=== PATIENT | male | born 1985 | race Caucasian/White ===

== ENCOUNTER 2018-01-16 10:19 | Emergency (ER) | END 2018-01-16 15:10 | disposition home or self-care (01) ==

== ENCOUNTER 2019-01-09 18:16 | Emergency (ER) | payer OTHER ==
[~2019-01-09] VITALS: Ht 172.7 cm; Wt 113.4 kg
[~2019-01-09 18:16] MED LIST: ASPI-699 PO
[2019-01-09 19:06] VITALS: Ht 172.7 cm; Wt 113.4 kg
[2019-01-09] MEDS ORDERED: SOD CHLORIDE 0.9% 500 ML IV STA (21:23)
[2019-01-09] MEDS ORDERED: KETOROLAC 60 MG INJ IV STA (21:23)
--- NOTE | 2019-01-09 22:49 | ERD ---
ER Documentation Chief Complaint Chief Complaint sharp CP x1 week. no SOB/other symptoms HPI This is a 33-year-old male with a history of diabetes mellitus who presents ED with left anterior sternal chest pain that has been present for the past week. Patient states the pain is on and off, feels like a pointing needlelike sensation and he rates it at a 2 out of 10. Patient states that it is worsened with palpation. Denies cough, congestion, sputum production, shortness breath, trouble breathing, anxiety, nervousness, pleuritic chest pain, palpitations, nausea, vomiting, diarrhea, constipation, abdominal pain, neck pain, headache, body aches and all other symptoms. Patient states that he recently was diagnosed with bronchitis but that resolved 1 week ago. Patient denies PE risk factors including recent surgery/immobilization, smoking, prior hx of DVT, coagulopathy, hx of cancer, exogenous estrogen use, one sided lower extremity swelling, and lower extremity pain Patient denies cardiac risk factors including: hypertension, hypercholesterolemia, physical inactivity, smoking, hx of CAD, and prior stress/cath. ROS All systems reviewed and are negative except as per history of present illness. Medications Home Meds Active Scripts Aspirin* (Juany Aspirin* Chew) 81 Mg Tab.chew, 81 MG PO DAILY, #100 TAB.CHEW Prov:AURELIA GUZMÁN MD 01/16/18 Allergies Allergies: Coded Allergies: naproxen (Verified Allergy, Mild, STOMACH UPSET, 01/16/18) PMhx/Soc Medical and Surgical Hx: pt denies Medical Hx, pt denies Surgical Hx Hx Miscellaneous Medical Probl: Yes (DM) Hx Alcohol Use: Yes (SOCIALLY) Hx Substance Use: No Hx Tobacco Use: No Smoking Status: Never smoker FmHx Family History: No diabetes Physical Exam Vitals Vital Signs Date Temp Pulse Resp B/P (MAP) Pulse Ox O2 O2 Flow FiO2 Time Delivery Rate 01/09/19 98.1 82 17 134/82 99 19:06 (99) Physical Exam Physical Exam Vitals signs: Reviewed by me. General: Well developed, well nourished, in no acute distress. Patient is awake and alert. Head: Normocephalic, atraumatic. Eyes: Normal conjunctiva, Pupils PERRLA, EOM intact grossly ENT: Pharynx is clear, Moist mucous membranes, external ears, nose and mouth normal Neck: Supple, no masses, lymphadenopathy or JVD Respiratory: Clear to auscultation bilaterally with no wheezing, rhonchi, rales, no distress, no retractions, no respiratory distress, no labored breathing Chest:, No increased AP diameter, no flail chest, when palpating the left anterior sternal area pain is reproduced Cardiovascular: RRR, no murmurs, rubs, or gallops Abdominal: Soft, non-tender, non-distended, no peritoneal signs : Deferred MSK: No edema, no unilateral swelling, 5/5 strength Back: No midline tenderness. No flank tenderness Neurologic: Alert and oriented, moving all extremities, normal speech, no focal weakness, no cerebellar signs. Normal mentation Skin: warm and dry, No rash Psych: Normal mood Result Diagram: 01/09/19213701/09/192137 Results 24 hrs Laboratory Tests Test 01/09/19 21:38 White Blood Count 9.8 10^3/ul Red Blood Count 5.23 10^6/ul Hemoglobin 14.1 g/dl Hematocrit 43.9 % Mean Corpuscular Volume 83.9 fl Mean Corpuscular Hemoglobin 27.0 pg Mean Corpuscular Hemoglobin Concent 32.1 g/dl Red Cell Distribution Width 13.0 % Platelet Count 299 10^3/UL Mean Platelet Volume 9.8 fl Immature Granulocytes % 0.300 % Neutrophils % 48.4 % Lymphocytes % 38.3 % Monocytes % 8.4 % Eosinophils % 4.1 % Basophils % 0.5 % Nucleated Red Blood Cells % 0.0 /100WBC Immature Granulocytes # 0.030 10^3/ul Neutrophils # 4.7 10^3/ul Lymphocytes # 3.7 10^3/ul Monocytes # 0.8 10^3/ul Eosinophils # 0.4 10^3/ul Basophils # 0.1 10^3/ul Nucleated Red Blood Cells # 0.0 10^3/ul Sodium Level 142 mmol/L Potassium Level 4.4 mmol/L Chloride Level 105 mmol/L Carbon Dioxide Level 28 mmol/L Anion Gap 9 Blood Urea Nitrogen 17 mg/dl Creatinine 0.89 mg/dl Est Glomerular Filtrat Rate mL/min > 60 mL/min Glucose Level 105 mg/dl Calcium Level 9.4 mg/dl Total Bilirubin 0.4 mg/dl Direct Bilirubin 0.00 mg/dl Indirect Bilirubin 0.4 mg/dl Aspartate Amino Transf (AST/SGOT) 42 IU/L Alanine Aminotransferase (ALT/SGPT) 28 IU/L Alkaline Phosphatase 90 IU/L Troponin I < 0.012 ng/ml Total Protein 7.7 g/dl Albumin 4.4 g/dl Globulin 3.30 g/dl Albumin/Globulin Ratio 1.33 Current Medications Medications Dose Sig/Travis Start Time Status Last (Trade) Ordered Route PRN Stop Time Admin Dose Reason Admin Ketorolac 30 mg ONCE STAT 01/09/19 DC 01/09/19 Tromethamine IV 21:23 01/09/19 21:56 (Toradol) 21:27 Sodium 500 ml @ Q1H STAT 01/09/19 DC 01/09/19 Chloride 500 mls/hr IV 21:23 01/09/19 21:56 22:22 Procedures/MDM EKG, MONITORS, & DIAGNOSTIC IMAGING: EKG read by milo: Rate/Rhythm: Regular rate and rhythm at a rate of 74 Intervals: Normal Impression: No evidence of ischemia or arrhythmia No ST elevation, no peak T waves, no widened QRS, no OR interval prolongation, no QT interval prolongation [place] [address] Radiology Main Line: [phone] DIAGNOSTIC IMAGING REPORT Patient: AURY VIERA : 1985 Age: 33 Sex: M MR #: [id number] DOS: 01/09/192122 Ordering MD: CHRISTINE BROWN PA-C Location: [facility] Room/Bed: PROCEDURE: XR Chest. CLINICAL INDICATION: chest pain TECHNIQUE: Single frontal view of the chest was obtained COMPARISON: None FINDINGS: See impression IMPRESSION: Lungs are clear. No pleural effusion or pneumothorax. Heart and mediastinum are within normal limits. ... No acute musculoskeletal abnormalities. RPTAT: AA Physician Karlee Date Time Electronically viewed and signed by Physician Karlee on 2018 22:57 RB/ CC: CHRISTINE BROWN PA-C [phone] LAB INTERPRETATION: CBC shows no evidence of hemorrhage or infection Chemistry shows no evidence of significant electrolyte abnormalities or renal insufficiency Liver function test shows no evidence of acute biliary or hepatic dysfunction Cardiac biomarkers show no evidence of acute myocardial injury or coronary ischemia ER COURSE: The patient was given IV normal saline Toradol The medication was well tolerated and the patient reports improvement in symptoms. The patient was stable throughout ED course. I kept the patient and/or family informed of laboratory and diagnostic imaging results throughout the emergency room course. The patient was promptly evaluated and a treatment plan was devised based on H&P and other data. This plan was discussed with the patient who agreed and had no further questions or concerns prior to discharge. MEDICAL DECISION MAKING: This is a 33-year-old male with a history of diabetes mellitus presents ED with complaints of left anterior sternal chest pain that is been present for the past week. The patient presents with chest pain and I considered pulmonary embolism, acute coronary syndrome, STEMI, and STEMI, pericarditis, aortic dissection, pneumothorax, tension pneumothorax, pneumonia, pleural effusion, among other diagnoses. Given patient's history of recent bronchitis as well as pain worsened with palpation this is likely costochondritis. Per the perc criteria pulmonary embolism can be ruled out. Patient is low risk for PE by well's criteria with the score of 0. Patient also does not have any risk factors for p ulmonary embolism. Chest x-ray is unremarkable. EKG is also unremarkable. Evaluation for acute coronary syndrome was performed. The HEART score (www.mdcalc.com <http://www.mdcalc.com>) was utilized for risk stratification and found to be 1. Based on this evaluation the patients risk of major adverse cardiac events is <1%. History and physical examination other data not consistent with emergent processes including lung not limited to acute coronary syndrome, pulmonary embolism, pneumonia, pleural effusion, pneumothorax, tension pneumothorax, aortic dissection, esophageal rupture, among others. Patient vitals are stable and patient can be managed with close outpatient follow. patient advised to follow up with primary care in the next 48 hours. return to ed with any worsening symptoms DISPOSITION PLAN: We discussed follow up with the patient's primary care doctor within 24 to 48 hours. Patient counseled regarding my diagnostic impression and care plan. Prior to discharge all questions answered. Pt agrees with treatment plan and understands strict return precautions. Precautionary instructions provided including instructions to return to the ER if not improving or for any worsening or changing symptoms or concerns. SPECIALIST FOLLOW UP RECOMMENDED: None Patient has been advised to follow up with primary care in 1-2 days. Disclaimer: Inadvertent spelling and grammatical errors are likely due to EHR/dictation software use and do not reflect on the overall quality of patient care. Also, please note that the electronic time recorded on this note does not necessarily reflect the actual time of the patient encounter. Blood Pressure Assessment: Patient's blood pressure was elevated (>120/80) but appears stable without evidence of hypertension emergency or urgency. The p atient was counseled about the risks of hypertension and urged to pursue outpatient monitoring and therapy within a week with their primary care physician. Departure Diagnosis: Primary Impression: Costochondritis, acute Condition: Stable Patient Instructions: Chest Pain, Uncertain Cause, Chest Wall Pain, Costochondritis Referrals: [facility] Additional Instructions: Patient advised to return to the ED immediately for new or worsening symptoms. Patient advised to follow up with primary care provider in the next 24-48 hours. Patient verbalized understanding and agrees with treatment plan and course of action. If patient has no primary care they may follow up with one of the community clinics listed on the following page or one of the options listed below [facility] + [facility] [address] [place] [id number] or [facility] [address] [place] [address] or [facility] [address] [place] [address] CHRISTINE BROWN PA-C Jan 09, 2019 22:49
[2019-01-09] MEDS ORDERED: IBUP800T48 PO (23:21)
[2019-01-09 23:44] VITALS: BP 108/68; PULSE 66; RESP 18
== END 2019-01-09 23:46 | disposition home or self-care (01) ==
LOC: FTE 18:16
DX: M94.0 Chondrocostal junction syndrome [Tietze] (principal); E11.9 Type 2 diabetes mellitus without complications; Z79.82 Long term (current) use of aspirin
CPT/HCPCS: 36415; 71045; 80053; 84484; 85025; 93005; 96374; 99285; J1885; J7040